=== PATIENT | female | born 1995 | race Caucasian/White ===

== ENCOUNTER 2016-06-11 20:05 | Emergency (ER) | payer OTHER ==
[2016-06-11] MEDS ORDERED: diPHENhydraMINE IV* 50 MG/ML 1 ml VIAL (BENADRYL) IV ONE (21:16)
[2016-06-11] MEDS ORDERED: NS 0.9% 1000 ML* 1,000 ML IV ONE (21:16)
[2016-06-11] MEDS ORDERED: PROCHLORPERAZINE INJ 5 MG/ML 2 ML VIAL IV ONE (21:17)
--- NOTE | 2016-06-11 21:20 | ED ---
Headache - HPI Summary HPI Summary: 21 F w/ PMH of anxiety and migraines presents with migraine for 3 days. Had a generally headache for 2 weeks. Migraine is located behind both eyes and into neck which is typically for migraines. Took tyenlol and her migraine medication prescribed by her primary that does not remember what medication is but it did not help as it normal does. She denies any neck stiffness, fever, or recent illness. She denies any weakness, numbness or tingling. She admits to photophobia and phonophobia. She admits to intermittent nausea and vomiting but denies any abdominal pain. LMP 2 weeks ago. - History Of Current Complaint Chief Complaint: EDHeadache Stated Complaint: MIGRAINE Time Seen by Provider: 06/11/16 21:07 Hx Last Menstrual Period: 2 weeks ago - Allergies/Home Medications Allergies/Adverse Reactions: Allergies Allergy/AdvReac Type Severity Reaction Status Date / Time Aspirin Allergy See Comment Verified 06/11/16 20:49 PMH/Surg Hx/FS Hx/Imm Hx Endocrine/Hematology History: Denies: Hx Diabetes, Hx Thyroid Disease Cardiovascular History: Denies: Hx Congestive Heart Failure, Hx Hypertension Respiratory History: Denies: Hx Asthma, Hx Chronic Obstructive Pulmonary Disease (COPD) GI History: Denies: Hx Ulcer History: Denies: Hx Renal Disease Neurological History: Reports: Hx Migraine Infectious Disease History: No Infectious Disease History: Denies: Hx Hepatitis, Hx Human Immunodeficiency Virus (HIV), Traveled Outside the [place] in Last 30 Days - Family History Known Family History: Positive: Cardiac Disease - Social History Alcohol Use: None Hx Substance Use: No Substance Use Type: Reports: None Hx Tobacco Use: No Smoking Status (MU): Never Smoked Tobacco Review of Systems Negative: Fever Negative: Chest Pain Negative: Shortness Of Breath Positive: Headache. Negative: Weakness, Numbness All Other Systems Reviewed And Are Negative: Yes Physical Exam Triage Information Reviewed: Yes Vital Signs On Initial Exam: Initial Vitals Temp Pulse Resp BP Pulse Ox 98.2 F 102 16 135/92 100 06/11/16 20:20 06/11/16 20:20 06/11/16 20:20 06/11/16 20:20 06/11/16 20:20 Vital Signs Reviewed: Yes Appearance: Positive: Pain Distress Skin: Positive: Warm, Dry Head/Face: Positive: Normal Head/Face Inspection Eyes: Positive: Normal, EOMI, CAROL, Conjunctiva Clear ENT: Positive: Normal ENT inspection, Pharynx normal, TMs normal Neck: Positive: Supple, Nontender. Negative: Nuchal Rigidity Respiratory/Lung Sounds: Positive: Clear to Auscultation, Breath Sounds Present Cardiovascular: Positive: Normal, RRR Abdomen Description: Positive: Nontender, Soft Bowel Sounds: Positive: Present Neurological: Positive: Sensory/Motor Intact, Alert, Oriented to Person Place, Time, CN Intact II-III Diagnostics - Vital Signs Vital Signs Temp Pulse Resp BP Pulse Ox 06/11/16 20:20 98.2 F 102 16 135/92 100 - Laboratory Result Diagrams: 06/11/16 21:35 06/11/16 21:35 Lab Statement: Any lab studies that have been ordered have been reviewed, and results considered in the medical decision making process. Re-Evaluation - Re-Evaluation First Eval Re-Evaluation Time: 22:02 Change: Improved Comment: patient currently sleeping Second Eval Re-Evaluation Time: 22:11 Change: Improved Comment: migraine gone ready to be d/c Headache Course/Dx - Course Course Of Treatment: 21 F presents with migraine which states is her typically migraine x3 days that did not improve with normal migraine medication. denies any difference from normal migraines staying pain is behind eyes and into neck. no neck stiffness or nuchal rigidity so do not suspect mengitidis. normal neuro exam. labs:normal. migraine resolved, will send home with zofran and have follow up with PCP. patient understands and agrees with plan - Diagnoses Differential Diagnosis/HQI/PQRI: Meningitis, Migraine, Tension Headache Provider Diagnoses: Migraine Discharge - Discharge Plan Condition: Good Disposition: HOME Patient Education Materials: Migraine Headache (ED) Referrals: Collin LINCOLN,Estelle Horne [Primary Care Provider] - Additional Instructions: Take Tylenol or ibuprofen for pain every 6 hours as needed Take zofran as needed for nausea every 6 hours Follow up with primary care physician for management of headaches Return to ED if develop fever, neck stiffness, or any new or worsening symptoms
[2016-06-11 21:45] LABS: Hematocrit 38 % (35-47); Hemoglobin 12.6 g/dl (12.0-16.0); Mean Corpuscular HGB Conc 34 g/dl (31-36); Mean Corpuscular Hemoglobin 30 pg (27-31); Mean Corpuscular Volume 89 fL (80-97); Mean Platelet Volume 9 um3 (7.4-10.4); Red Blood Count 4.24 10^6/ul (4.0-5.4); Red Cell Distribution Width 13 % (10.5-15); White Blood Count 7.5 10^3/ul (3.5-10.8)
[2016-06-11 22:00] LABS: ALT 15 U/L (7-52); AST 16 U/L (13-39); Albumin 4.6 g/dL (3.2-5.2); Alkaline Phosphatase 71 U/L (34-104); Anion Gap 6 mmol/L (2-11); BUN/Creatinine Ratio 12.9 (8-20); Blood Urea Nitrogen 8 mg/dL (6-24); CO2 Carbon Dioxide 29 mmol/L (22-32); Calcium 9.8 mg/dL (8.6-10.3); Chloride 103 mmol/L (101-111); EGFR African American 154.8 (>60); EGFR Non-African American 120.4 (>60); Globulin 3.3 g/dL (2-4); Glucose 98 mg/dL (70-100); Potassium 3.8 mmol/L (3.5-5.0); Sodium 138 mmol/L (133-145); Total Protein 7.9 g/dL (6.4-8.9)
[2016-06-11] MEDS ORDERED: Ondansetron ODT TAB* 4 MG PO ONE (22:07)
[2016-06-11 22:45] VITALS: BP 108/62
== END 2016-06-11 22:44 | disposition home or self-care (01) ==
LOC: ED 20:05
DX: G43.909 Migraine, unspecified, not intractable, without status migrainosus (principal); F41.9 Anxiety disorder, unspecified
CPT/HCPCS: 36415; 80053; 84702; 85025; 96360; 96374; 96375; 99282; A9270-GY; J0780; J1200

== ENCOUNTER 2016-07-11 07:46 | Emergency (ER) | payer OTHER ==
[2016-07-11 08:03] VITALS: BP 120/71
--- NOTE | 2016-07-11 09:12 | UC ---
Anisa Beatty Alok, scribed for Maryam Villasenor MD on 07/11/16 at 0856 . Throat Pain/Nasal Rodney HPI - HPI Summary HPI Summary: 21 y/o female presents to the and c/o sinus pain, sinus PAUL, rhinorrhea, nasal congestion, sore throat, dry cough and ear pain. Pt states that sinus pain began over a week ago 06/30/16 later followed by ear pain and sore throat 4 days ago 07/08/16. Pt adds a documented fever of 100.5-101 F "on and off for the last week", and describes her sinus PAUL as "a train on her head". Pt denies any CP, SOB, or dyspnea. Pt denies any wheezing, hx of asthma or PNA. Pt is allergic to Aspirin. Pt is S/P T &A and this is her first sinus infx since the surgery 2 years ago. - History of Current Complaint Chief Complaint: UCGeneralIllness Stated Complaint: SINUS ISSUE EAR PAIN SORE THROAT Time Seen by Provider: 07/11/16 08:45 Hx Obtained From: Patient Hx Last Menstrual Period: 06/26/16 ?: No Onset/Duration: Gradual Onset, Lasting Weeks, Still Present Severity: Moderate Pain Intensity: 2 Pain Scale Used: 0-10 Numeric Cough: Nonproductive Associated Signs & Symptoms: Positive: Sinus Discomfort, Nasal Discharge, Fever. Negative: Wheezing, Vomiting Related History: T & A - Epiglottits Risk Factors Epiglottis Risk Factors: Negative - Allergies/Home Medications Allergies/Adverse Reactions: Allergies Allergy/AdvReac Type Severity Reaction Status Date / Time Aspirin Allergy See Comment Verified 07/11/16 07:50 [place] Juice Allergy Vomiting Uncoded 07/11/16 07:50 Home Medications: Home Medications Dextromethorphan-Phenylephrine [Tylenol Cold Max 10-5-325 mg/15Ml] 20 ml PO PRN 07/11/16 [History] Fluticasone NASAL SPRAY 50MCG* [Flonase NASAL SPRAY 50MCG*] 2 spray NASAL DAILY 07/11/16 [History Confirmed 07/11/16] GuaiFENesin DM* [Robitussin DM*] 20 ml PO PRN 07/11/16 [History] Pantoprazole TAB (NF) [Protonix TAB (NF)] 1 tab PO DAILY 07/11/16 [History Confirmed 07/11/16] Sertraline HCl [Zoloft] 1 tab PO BEDTIME 07/11/16 [History Confirmed 07/11/16] PMH/Surg Hx/FS Hx/Imm Hx Endocrine History Of: Denies: Diabetes, Thyroid Disease Cardiovascular History Of: Denies: Cardiac Disorders, Hypertension, Congestive Heart Failure Respiratory History Of: Denies: COPD, Asthma GI/ History Of: Denies: Ulcer, Renal Disease Neurological History Of: Reports: Migraine - Surgical History Surgical History: Yes Surgery Procedure, Year, and Place: T&A; [place] teeth remove, Endoscopy - Family History Known Family History: Positive: Cardiac Disease - Social History Alcohol Use: Occasionally Substance Use Type: None Smoking Status (MU): Never Smoked Tobacco Household Exposure Type: Cigarettes - Immunization History Most Recent Influenza Vaccination: 10/2015 Review of Systems Constitutional: Fever - documented 100.5-101 F "on and off for last week" Skin: Negative ENT: Sore Throat, Ear Ache, Nasal Discharge Respiratory: Cough - Dry Cardiovascular: Negative Genitourinary: Negative Neurological: Headache - Sinus All Other Systems Reviewed And Are Negative: Yes Physical Exam Triage Information Reviewed: Yes Appearance: Well-Nourished, Ill-Appearing - mild, Pain Distress Vital Signs: Initial Vital Signs Temp 99.1 F 07/11/16 07:58 Pulse 81 07/11/16 07:58 Resp 16 07/11/16 07:58 BP 120/71 07/11/16 07:58 Pulse Ox 99 07/11/16 07:58 Vital Signs Reviewed: Yes Eyes: Positive: Conjunctiva Clear ENT: Positive: Pharyngeal erythema, TMs normal, Other: - Frontal and maxillary sinus tenderness Neck: Positive: Supple, Nontender, No Lymphadenopathy Respiratory: Positive: Lungs clear, Normal breath sounds, No respiratory distress Cardiovascular: Positive: RRR, No Murmur, Pulses Normal, Brisk Capillary Refill Abdomen Description: Negative: Splenomegaly Musculoskeletal: Positive: Strength Intact, ROM Intact Neurological: Positive: Alert, Muscle Tone Normal Psychological Exam: Normal Skin Exam: Normal Throat Pain/Nasal Course/Dx - Differential Dx/Diagnosis Differential Diagnosis/HQI/PQRI: Influenza, Otitis Media, Pharyngitis, Sinusitis Provider Diagnoses: acute sinusitis Discharge - Discharge Plan Condition: Stable Disposition: HOME Prescriptions: Amoxicillin/Clavulanate TAB* [Augmentin TAB 875*] 875 mg PO BID #20 tab Patient Education Materials: Sinusitis (ED) Referrals: Collin LINCOLN,Estelle Horne [Primary Care Provider] - 2 Days (2) The documentation as recorded by the Anisa perez Alok accurately reflects the service I personally performed and the decisions made by me, Maryam Villasenor MD.
== END 2016-07-11 08:56 | disposition home or self-care (01) ==
LOC: UCEAST 07:46
DX: J01.90 Acute sinusitis, unspecified (principal); Z88.6 Allergy status to analgesic agent; Z77.22 Contact with and (suspected) exposure to environmental tobacco smoke (acute) (chronic)
CPT/HCPCS: 99212; G0463

== ENCOUNTER 2016-08-17 13:30 | Emergency (ER) | payer OTHER ==
[2016-08-17] MEDS ORDERED: Ibuprofen TAB* 600 MG PO ONE (13:50)
[2016-08-17 13:51] VITALS: BP 143/84
--- NOTE | 2016-08-20 20:04 | UC ---
Jaci, DoctorRoma, scribed for Aidan Cabrera MD on 08/17/16 at 1343 . Back Pain HPI - HPI Summary HPI Summary: 21 year old female arrived to [facility] c/o neck and back pain beginning this morning. She reports that her pain began in the lower neck, and progressively moved to the upper left side of her back. Her pain is described as "sharp and shooting," and is rated 5/10. It is exacerbated with movement of the head/neck and positioning of the left arm. Pt denies any weakness, numbness, or SOB. She has not taken any pain medication. She regularly experiences migraines, but denies any other pertinent PMHx. Dr. Cabrera discussed potential medication options as well as potential side- effects of Flexeril with pt. - History of Current Complaint Chief Complaint: UCBackPain Stated Complaint: NECK PAIN Time Seen by Provider: 08/17/16 13:35 Hx Obtained From: Patient Hx Last Menstrual Period: 07/28/16 Onset/Duration: Gradual Onset Timing: Lasting Hours Severity Initially: Moderate Severity Currently: Moderate Pain Intensity: 5 Pain Scale Used: 0-10 Numeric Character: Sharp - sharp, shooting pain Aggravating: Movement Associated Signs And Symptoms: Negative: Fever, Weakness, Numbness - Allergies/Home Medications Allergies/Adverse Reactions: Allergies Allergy/AdvReac Type Severity Reaction Status Date / Time Aspirin Allergy See Comment Verified 07/11/16 07:50 [place] Juice Allergy Vomiting Uncoded 07/11/16 07:50 Home Medications: Home Medications Hyoscyamine Sulfate 08/17/16 [History] Montelukast Sodium TAB* [Singulair 10 MG TAB*] 1 tab PO DAILY 08/17/16 [History Confirmed 08/17/16] Sucralfate TAB* [Carafate*] 08/17/16 [History] Sumatriptan Succinate [Imitrex] 08/17/16 [History] PMH/Surg Hx/FS Hx/Imm Hx Endocrine History Of: Denies: Diabetes, Thyroid Disease Cardiovascular History Of: Denies: Cardiac Disorders, Hypertension, Congestive Heart Failure Respiratory History Of: Denies: COPD, Asthma GI/ History Of: Denies: Ulcer, Renal Disease Neurological History Of: Reports: Migraine - Surgical History Surgical History: Yes Surgery Procedure, Year, and Place: T&A; [place] teeth remove, Endoscopy - Family History Known Family History: Positive: Cardiac Disease - Social History Alcohol Use: Occasionally Substance Use Type: None Smoking Status (MU): Never Smoked Tobacco Household Exposure Type: Cigarettes - Immunization History Most Recent Influenza Vaccination: 10/2015 Review of Systems Constitutional: Negative - fever Respiratory: Negative - SOB Musculoskeletal: Other: - pain in the neck and upper left back Neurological: Negative - weakness, numbness All Other Systems Reviewed And Are Negative: Yes Physical Exam Triage Information Reviewed: Yes Appearance: Well-Appearing, Pain Distress - mild pain distress Vital Signs: Initial Vital Signs Temp 98.0 F 08/17/16 13:34 Pulse 78 08/17/16 13:34 Resp 18 08/17/16 13:34 BP 143/84 08/17/16 13:34 Pulse Ox 100 08/17/16 13:34 Vital Signs Reviewed: Yes Eyes: Positive: Conjunctiva Clear ENT: Positive: Normal ENT inspection Neck: Negative: Nontender - tender at left lateral of T2 and down in trapezius muscle into upper scapula Respiratory: Positive: Lungs clear, Normal breath sounds Cardiovascular: Positive: RRR Abdomen Description: Positive: Nontender, Soft Musculoskeletal: Positive: Strength Intact - arms have good strength, ROM Intact Neurological Exam: Normal - no neurological deficit Psychological Exam: Normal Skin Exam: Normal Back Pain Course/Dx - Differential Dx/Diagnosis Provider Diagnoses: NECK PAIN WITH RADICULOPATHY Discharge - Discharge Plan Condition: Stable Disposition: HOME Prescriptions: Cyclobenzaprine TAB* [Flexeril 10 MG TAB*] 10 mg PO TID PRN #10 tab PRN Reason: Pain Patient Education Materials: Cervical Radiculopathy (ED), Acute Neck Pain (ED) Referrals: Estelle Polanco MD [Primary Care Provider] - Additional Instructions: FOLLOW UP WITH YOUR DOCTOR. TAKE IBUPROFEN 600MG EVERY 6 HOURS NEEDED. RETURN TO THE EMERGENCY DEPARTMENT FOR ANY WORSENING OF YOUR CONDITION; WEAKNESS , NUMBNESS, PAIN OR QUESTIONS OR CONCERNS. The documentation as recorded by the Doctor perez Tahera accurately reflects the service I personally performed and the decisions made by me, Aidan Cabrera MD.
== END 2016-08-17 14:05 | disposition home or self-care (01) ==
LOC: UCEAST 13:30
DX: M54.2 Cervicalgia (principal); M54.12 Radiculopathy, cervical region; Z88.6 Allergy status to analgesic agent; G43.909 Migraine, unspecified, not intractable, without status migrainosus; Z77.22 Contact with and (suspected) exposure to environmental tobacco smoke (acute) (chronic)
CPT/HCPCS: 99212; A9270-GY; G0463

== ENCOUNTER 2016-11-19 11:12 | Emergency (ER) | payer OTHER ==
[2016-11-19 11:24] VITALS: BP 122/78
--- NOTE | 2016-11-19 11:59 | UC ---
Seizure HPI - HPI Summary HPI Summary: WHILE AT WORK TODAY HAD SUDDEN "CONVULSIONS". 3 EPISODES IN 5 MINUTES LASTING ABOUT 15 SEC EACH. GIRLFRIEND WITNESSED ONE EPISODE AND STATES PTS WHOLE BODY WENT STIFF AND BACK WAS ARCHED AND HANDS WERE SHAKING. OCCURRED ABOUT 10:50AM. REPORTS SIMILAR CONVULSIONS 03/2016 THAT WER EEVALUATED BY NEURO AT [facility] BUT NO ABNORMALITIES FOUND. PT NOT ON ANY SEIZURE MEDS. NO HEAD TRAUMA. LOC. PT STATES SHE IS AWARE THE WHOLE TIME BUT UNABLE TO SPEAK. HAS SOME MILD NAUSEA NOW. - History Of Current Complaint Chief Complaint: UCSeizure Stated Complaint: SEIZURES Time Seen by Provider: 11/19/16 11:29 Hx Obtained From: Patient, Family/Reference Data Expert - GIRLFRIEND Hx Last Menstrual Period: 11/19/16 Onset/Duration: Sudden Onset, Resolved Severity Of Seizure: Self-Limited Location Of Seizure: All Extremities Aggravating Factor(s): Nothing Alleviating Factor(s): Spontaneous Resolution Associated Signs And Symptoms: Negative - Allergies/Home Medications Allergies/Adverse Reactions: Allergies Allergy/AdvReac Type Severity Reaction Status Date / Time Aspirin Allergy See Comment Verified 11/19/16 11:24 [place] Juice Allergy Vomiting Uncoded 11/19/16 11:24 PMH/Surg Hx/FS Hx/Imm Hx GI/ History: Gastroesophageal Reflux Psychological History: Anxiety - Surgical History Surgical History: Yes Surgery Procedure, Year, and Place: T&A; [place] teeth remove, Endoscopy - Family History Known Family History: Positive: Cardiac Disease Negative: Seizure Disorder - Social History Alcohol Use: None Substance Use Type: None Smoking Status (MU): Never Smoked Tobacco Household Exposure Type: Cigarettes - Immunization History Most Recent Influenza Vaccination: 10/2015 Review of Systems Constitutional: Negative Respiratory: Negative Cardiovascular: Negative Gastrointestinal: Negative Neurological: Other - SZ ACTIVITY All Other Systems Reviewed And Are Negative: Yes Physical Exam Triage Information Reviewed: Yes Appearance: Well-Appearing, No Pain Distress, Well-Nourished Vital Signs: Initial Vital Signs Temp 98.4 F 11/19/16 11:18 Pulse 85 11/19/16 11:18 Resp 16 11/19/16 11:18 BP 122/78 11/19/16 11:18 Pulse Ox 99 11/19/16 11:18 Vital Signs Reviewed: Yes Eyes: Positive: Conjunctiva Clear ENT: Positive: Hearing grossly normal Neck: Positive: Supple Respiratory Exam: Normal Cardiovascular Exam: Normal Abdomen Description: Positive: Soft Musculoskeletal: Positive: No Edema Neurological: Positive: Alert, Other: - CN II-XII GROSSLY INTACT BILATERALLY. NEG PRONATOR DRIFT. FINGER TO NOSE INTACT BILATERALLY. HEEL TO BREWER INTACT BILATERALLY. RAPID ALTERNATING MVMTS INTACT. 5/5 STRENGTH Psychological: Positive: Age Appropriate Behavior Skin: Negative: rashes Seizure Course/Dx - Course Course Of Treatment: WILL SEND TO ER FOR FURTHER EVAL. PT WILL LIKELY NEED LABS AND NEURO REFERRAL. - Differential Dx/Diagnosis Provider Diagnoses: POSSIBLE SEIZURE ACTIVITY - Physician Notification/Consults Discussed Patient Care With: Susan Draper - TO [facility] BY PRIVATE CAR Instructed by Provider To: MD Will See In ED Discharge - Discharge Plan Condition: Stable Disposition: AGAINST MEDICAL ADVICE Referrals: Collin LINCOLN,Estelle Horne [Primary Care Provider] -
== END 2016-11-19 11:47 | disposition left against medical advice (07) ==
LOC: UCEAST 11:12
DX: R56.9 Unspecified convulsions (principal)
CPT/HCPCS: 99212; G0463

== ENCOUNTER 2018-12-03 22:21 | Emergency (ER) | payer OTHER ==
[2018-12-03] MEDS ORDERED: LORazepam INJ* 2 MG/ML 1 ML VIAL ONE (22:40)
[2018-12-03] MEDS ORDERED: Lorazepam PYXIS KEY ONE (22:40)
[2018-12-03] MEDS ORDERED: NS 0.9% 1000 ML** 1,000 ML IV ONE (22:45)
[2018-12-03 23:22] LABS: ABS Basophils 0.1 10^3/ul (0-0.2); ABS Eosinophils 0.4 10^3/ul (0-0.6); ABS Lymphocytes 2.7 10^3/ul (1.0-4.8); ABS Monocytes 0.4 10^3/ul (0-0.8); ABS Neutrophils 4.9 10^3/ul (1.5-7.7); Eosinophil % 4.3 %; Hematocrit 38 % (35-47); Hemoglobin 13.1 g/dL (12.0-16.0); Lymphocyte % 31.8 %; Mean Corpuscular HGB Conc 34 g/dL (31-36); Mean Corpuscular Hemoglobin 31 pg (27-31); Mean Corpuscular Volume 91 fL (80-97); Mean Platelet Volume 9.4 fL (7.4-10.4); Nucleated Red Blood Cells % 0.1; Platelet Count 235 10^3/uL (150-450); Red Blood Count 4.24 10^6 /uL (3.70-4.87); Red Cell Distribution Width 13 % (10-15); White Blood Count 8.5 10^3/uL (3.5-10.8)
[2018-12-03 23:26] LABS: INR 1.05 (0.82-1.09)
[2018-12-03 23:37] LABS: ALT 11 U/L (7-52); AST 12 U/L (13-39); Albumin 4.7 g/dL (3.2-5.2); Albumin/Globulin Ratio 1.6 (1-3); Alkaline Phosphatase 57 U/L (34-104); Anion Gap 8 mmol/L (2-11); BUN/Creatinine Ratio 13.9 (8-20); Blood Urea Nitrogen 10 mg/dL (6-24); CO2 Carbon Dioxide 24 mmol/L (22-32); Calcium 9.4 mg/dL (8.6-10.3); Chloride 106 mmol/L (101-111); Creatine Kinase 66 U/L (10-223); EGFR African American 120.4 (>60); EGFR Non-African American 99.5 (>60); Globulin 2.9 g/dL (2-4); Glucose 98 mg/dL (70-100); Magnesium 2.1 mg/dL (1.9-2.7); Potassium 3.5 mmol/L (3.5-5.0); Sodium 138 mmol/L (135-145); Total Protein 7.6 g/dL (6.4-8.9)
[2018-12-03 23:43] LABS: HCG Pregnancy < 0.60 mIU/mL
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
[2018-12-04 00:08] LABS: Alcohol < 10 mg/dL (<10)
[2018-12-04 00:23] LABS: TSH (Thyroid Stimulating Horm) 2.65 mcIU/mL (0.34-5.60)
[2018-12-04 00:48] VITALS: BP 123/73
== END 2018-12-04 00:47 | disposition home or self-care (01) ==
LOC: ED 22:21
DX: R56.9 Unspecified convulsions (principal); G43.909 Migraine, unspecified, not intractable, without status migrainosus; Z88.6 Allergy status to analgesic agent; Z79.899 Other long term (current) drug therapy
CPT/HCPCS: 36415; 70450; 72125; 80053; 80320; 82550; 83735; 84443; 84702; 85025; 85610; 99283; G0480; J2060

== ENCOUNTER 2023-09-18 14:32 | Inpatient (IN) ==
[2023-09-18 15:30] LABS: Urine Appearance Clear; Urine Bilirubin Negative (Negative); Urine Blood Negative (Negative); Urine Color Light-Yellow; Urine Glucose Negative (Negative); Urine Ketones Negative (Negative); Urine Nitrite Negative (Negative); Urine Protein Trace (Negative); Urine Specific Gravity 1.018 (1.002-1.030); Urine Urobilinogen Negative (Negative); Urine pH 6.5 (5.0-8.0)
[2023-09-18 16:38] LABS: Urine Creatinine Concentration 107.2 mg/dL (20.00-320.00); Urine TP Creat Ratio 0.2 mg/mg
[2023-09-18] MEDS ORDERED: Lidocaine 1% VIAL 10 MG/ML 30 ML VIAL INJ PRN (16:49)
[2023-09-18] MEDS ORDERED: Buffered Lidocaine 1% SYRIN 1 ml INTRADERM ONE (16:49)
[2023-09-18 18:00] LABS: ABS Basophils 0.1 10^3/uL (0.0-0.1); ABS Eosinophils 0.1 10^3/uL (0.0-0.5); ABS Lymphocytes 1.5 10^3/uL (1.0-4.8); ABS Monocytes 0.4 10^3/uL (0.0-0.9); ABS Neutrophils 4.4 10^3/uL (1.5-7.6); Eosinophil % 0.9 %; Hematocrit 34.4 % (35-45); Hemoglobin 11.6 g/dL (11.5-14.3); Lymphocyte % 22.7 %; Mean Corpuscular Hemoglobin 30.1 pg (27-33); Mean Corpuscular Hgb Conc 33.7 g/dL (31-36); Mean Corpuscular Volume 89.4 fL (80-97); Mean Platelet Volume 10.7 fL (7.5-11.2); Platelet Count 149 10^3/uL (150-450); Red Blood Count 3.85 10^6/uL (3.63-4.92); White Blood Count 6.4 10^3/uL (3.8-11.8)
[2023-09-18 18:14] LABS: Urine Benzodiazepine Screen None Detected (None Detect); Urine Opiates Screen None Detected (None Detect)
[2023-09-18 18:43] LABS: ALT 6 U/L (7-52); Albumin 3.4 g/dL (3.2-5.2); Albumin/Globulin Ratio 1.2 (1-3); Alkaline Phosphatase 129 U/L (35-149); Blood Urea Nitrogen 9 mg/dL (6-24); CO2 Carbon Dioxide 20 mmol/L (22-32); Calcium 8.7 mg/dL (8.6-10.3); Chloride 104 mmol/L (101-111); Creatinine, Serum 0.54 mg/dL (0.51-0.95); Globulin 2.9 g/dL (2-4); Glucose 78 mg/dL (70-100); Sodium 134 mmol/L (135-145); Total Bilirubin 0.4 mg/dL (0.2-1.0); Total Protein 6.3 g/dL (6.4-8.9); Uric Acid 5.3 mg/dL (2.3-6.6); eGFR CKD-EPI 127.7 (>60)
[2023-09-18 18:46] LABS: Anion Gap 10 mmol/L (2-16)
[2023-09-18] MEDS: Dinoprostone 10 MG VAG.SUPP VAGINAL ONE (20:17)
[2023-09-18] MEDS: Calcium Carb (TUMS) 500 mg CHEW TAB PO ONE (22:34)
[2023-09-19] MEDS: Ondansetron 4 mg VIAL 2 MG/ML 2 ml VIAL IV PRN ×2 (06:27→18:47)
[2023-09-19] MEDS: Venlafaxine XR 75 mg PO SCH (09:16)
[2023-09-19] MEDS: Lactated Ringers 1000 ml BAG 1,000 ML IV SCH (10:09)
[2023-09-19] MEDS: Oxytocin in LR 20,000 MILLI.UNIT/1,000 ML BAG IV SCH ×2 (10:12→19:36)
[2023-09-19] MEDS: Lactated Ringers 1000 ml BAG 1,000 ML IV ONE (15:33)
[2023-09-19] MEDS: OBEPIDURAL (200 ML) 200 ML EPIDURAL ONE (15:48)
[2023-09-19] MEDS ORDERED: Sodium Citrate/Citric Acid LIQ 15 ML UDC PO PRN (15:54)
[2023-09-19] MEDS ORDERED: Phenylephrine 40 mcg/mL 10mL (400mcg) SYRINGE IV PUSH PRN ×2 (15:54)
[2023-09-19] MEDS ORDERED: Lactated Ringers 1000 ml BAG 1,000 ML IV SCH (16:00)
[2023-09-19] MEDS ORDERED: Famotidine IV 10 MG/ML 2 ml VIAL (20 mg) IV SLOW PU ONE (18:41)
[2023-09-19] MEDS: OBEPIDURAL (200 ML) 200 ML EPIDURAL SCH (19:36)
[2023-09-19] MEDS: Famotidine IV 10 MG/ML 2 ml VIAL (20 mg) IV SLOW PU ONE (22:58)
[2023-09-20] MEDS: Carboprost Tromethamine 250 mcg 1 ml VIAL IM ONE (00:55)
[2023-09-20] MEDS: ceFAZolin 2 GM/50 ML BAG IV ONE (01:12)
[2023-09-20] MEDS ORDERED: Phenylephrine 40 mcg/mL 10mL (400mcg) SYRINGE ONE (01:20)
[2023-09-20] MEDS ORDERED: Lidocaine 2% w/ EPI 1:200,000 MPF 20 ML SDV VIAL ONE (01:20)
[2023-09-20] MEDS ORDERED: Morphine 4 MG/ML VIAL (1 ml) IV ONE (01:53)
[2023-09-20] MEDS ORDERED: ceFAZolin VIAL 2 GM in NS 0.9% 100 ml BAG 100 ML IVPB ONE (01:53)
[2023-09-20] MEDS ORDERED: Glycerin ADULT 2.4 gm SUPP PR PRN (01:54)
[2023-09-20] MEDS ORDERED: Oxytocin in LR 20,000 MILLI.UNIT/1,000 ML BAG IV SCH (01:55)
[2023-09-20] MEDS ORDERED: Lactated Ringers 1000 ml BAG 1,000 ML IV SCH (02:00)
[2023-09-20 02:04] LABS: ABS Basophils 0.1 10^3/uL (0.0-0.1); ABS Lymphocytes 0.8 10^3/uL (1.0-4.8); ABS Monocytes 0.5 10^3/uL (0.0-0.9); ABS Neutrophils 9.6 10^3/uL (1.5-7.6); Eosinophil % 0.1 %; Hematocrit 29.7 % (35-45); Hemoglobin 10.1 g/dL (11.5-14.3); Lymphocyte % 7.4 %; Mean Corpuscular Hemoglobin 30.7 pg (27-33); Mean Corpuscular Hgb Conc 34.1 g/dL (31-36); Mean Corpuscular Volume 89.9 fL (80-97); Mean Platelet Volume 11.2 fL (7.5-11.2); Platelet Count 163 10^3/uL (150-450); Red Cell Distribution Width 15.8 % (12-17)
[2023-09-20] MEDS: ceFAZolin 2 GM PREMIX 2 GM/50 ML BAG ONE (02:37)
[2023-09-20] MEDS: Carboprost Tromethamine 250 mcg 1 ml VIAL ONE (02:37)
[2023-09-20] MEDS: Prochlorperazine 5 mg/ml 2 ml VIAL (10 mg) IV PRN (02:44)
[2023-09-20] MEDS: fentaNYL 100 mcg/2 ml 50 MCG/ML VIAL ONE (04:01)
[2023-09-20] MEDS: Oxytocin in LR 20,000 MILLI.UNIT/1,000 ML BAG IV ONE (04:01)
[2023-09-20] MEDS: Lidocaine 1.5% EPI 1:200,000 30 ML SDV ONE (04:01)
[2023-09-20] MEDS: Lactated Ringers 1000 ml BAG 1,000 ML IV ONE ×2 (08:10→08:31)
[2023-09-20] MEDS: Witch Hazel PAD JAR TOPICAL PRN (09:39)
[2023-09-20] MEDS: Dibucaine 1% OINT 28.35 GM TUBE PR PRN (09:39)
[2023-09-20 10:42] LABS: ABS Lymphocytes 1.2 10^3/uL (1.0-4.8); ABS Monocytes 0.5 10^3/uL (0.0-0.9); ABS Neutrophils 8.4 10^3/uL (1.5-7.6); Eosinophil % 0.1 %; Hematocrit 25.3 % (35-45); Hemoglobin 8.7 g/dL (11.5-14.3); Lymphocyte % 11.9 %; Mean Corpuscular Hemoglobin 30.7 pg (27-33); Mean Corpuscular Hgb Conc 34.6 g/dL (31-36); Mean Corpuscular Volume 88.5 fL (80-97); Mean Platelet Volume 10.3 fL (7.5-11.2); Platelet Count 115 10^3/uL (150-450); Red Blood Count 2.85 10^6/uL (3.63-4.92); Red Cell Distribution Width 15.3 % (12-17); White Blood Count 10.2 10^3/uL (3.8-11.8)
[2023-09-20 11:08] LABS: Albumin 2.6 g/dL (3.2-5.2); Albumin/Globulin Ratio 1.4 (1-3); Calcium 7.7 mg/dL (8.6-10.3); Creatinine, Serum 0.69 mg/dL (0.51-0.95); Globulin 1.9 g/dL (2-4); Potassium 4.1 mmol/L (3.5-5.0); Total Bilirubin 0.4 mg/dL (0.2-1.0); Total Protein 4.5 g/dL (6.4-8.9); eGFR CKD-EPI 120.4 (>60)
[2023-09-21 06:35] LABS: ABS Lymphocytes 1.3 10^3/uL (1.0-4.8); ABS Monocytes 0.4 10^3/uL (0.0-0.9); ABS Neutrophils 6.3 10^3/uL (1.5-7.6); Eosinophil % 0.2 %; Hematocrit 23.3 % (35-45); Lymphocyte % 15.8 %; Mean Corpuscular Hemoglobin 30.9 pg (27-33); Mean Corpuscular Hgb Conc 34.5 g/dL (31-36); Mean Corpuscular Volume 89.6 fL (80-97); Mean Platelet Volume 9.6 fL (7.5-11.2); Platelet Count 115 10^3/uL (150-450); Red Cell Distribution Width 15.7 % (12-17); White Blood Count 7.9 10^3/uL (3.8-11.8)
[2023-09-22 08:23] VITALS: BP 138/79
== END 2023-09-22 12:00 | disposition home or self-care (01) | DRG 541 ==
LOC: MCHOBOUT 14:32 → MCHOB 16:41
PROVIDERS: ADMIT Registered Nurse; ATTEND Advanced Practice Midwife